=== PATIENT | female | born 1935 | race Caucasian/White ===

== ENCOUNTER 2017-01-17 13:10 | Inpatient (IN) | payer OTHER ==
[2017-01-17] MEDS ORDERED: ENOXAPARIN SODIUM 30 MG/0.3 ML DISP.SYRIN SQ SCH (15:00)
[2017-01-17] MEDS: ACETAMINOPHEN 500 MG TABLET PO PRN ×2 (15:07→22:52)
[2017-01-17] MEDS ORDERED: ENOXAPARIN SODIUM 30 MG/0.3 ML DISP.SYRIN SQ ONE (15:08)
[2017-01-17 15:26] VITALS: BMI 49.5
[2017-01-17] MEDS: PANTOPRAZOLE SODIUM 40 MG TABLET PO SCH (17:40)
--- NOTE | 2017-01-17 18:23 | History and Physical Report ---
History of Present Illnes - History of Present Illness Reason for Visit: gait disturbance History of Present Illness: Patient is an 81 yo white female who fell and sustained a right intertrochanteric fracture with ORIF of the right hip. Postoperative course has been complicated by aspiration. She subsequently had a G tube placed. Patient has had a follow-up swallow study done which showed some improvement with her swallowing. Patient does have some dementia issues. Has been getting confused some but has not had any behavioral problems. Patient has bee admitted to this institution for further rehab services. The goal is for her to return home to live with her and daughter. - Past Medical History Cardiac: CAD, HTN, Hyperlipidemia, Valve insufficiency (mitral), Other (PVD) KILN CHARGER: CVA, Dementia Gastrointestinal: Constipation, Diverticulosis, GERD, GI bleed - Past Surgical History Past Surgical History: Other (CABG, s/p mitral valve replacement, endarterectomy , s/p left and right intertrochontric fracture) - Past Family History Mother Family History: Father Family History: - Past Social History Smoke: Quit Alcohol: None Drugs: None Lives: With Family Domestic Violence: Negative - Health Maintenance Health Maintenance: Influenza Vaccine, Pneumococcal Vaccine Influenza Vaccine: Current for this Influenza Season Pneumonia Vaccine: Yes Resuscitation Status: Resusciation Status Resuscitation Status Do Not Resuscitate - Unable to Obtain History Unable to Obtain: Yes Review of Systems - Review of Systems Constitutional: negative: Fever, Chills, Weakness Eyes: negative: pain, vision change, eyelid inflammation ENT: negative: Ear Pain, Ear Discharge, Nose Pain, Nose Discharge, Nose Congestion Respiratory: negative: Cough, Dry, Shortness of Breath, Hemoptysis, SOB with Excertion, Pleuritic Pain, Wheezing Cardiovascular: negative: Chest Pain, Palpitations, Orthopnea, Paroxysmal Noc. Dyspnea, Edema Gastrointestinal: negative: Nausea, Vomiting, Abdominal Pain, Diarrhea, Constipation Genitourinary: negative: Dysuria, Incontinence Musculoskeletal: Leg Pain (left hip). negative: Neck Pain, Shoulder Pain Skin: negative: Rash, Lesions Neurological: Confusion. negative: Weakness, Numbness, Incoordination - Medications/Allergies Allergies/Adverse Reactions: Allergies Allergy/AdvReac Type Severity Reaction Status Date / Time codeine AdvReac Nausea/Vomi Verified 01/17/17 13:45 ting Home Medications: Home Medications Aspirin [Ralph] 81 mg PO DAILY 01/17/17 Atorvastatin Calcium 40 mg PO HS 01/17/17 Donepezil HCl 10 mg PO HS 01/17/17 Furosemide [Lasix] 20 mg PO DAILY 01/17/17 Losartan Potassium [Cozaar] 75 mg PO DAILY 01/17/17 Metoprolol Tartrate [Lopressor] 25 mg PO DAILY 01/17/17 Multivitamin [Tab-A-Katherin] 1 each PO DAILY 01/17/17 Pantoprazole Sodium [Protonix] 20 mg PO 717 01/17/17 Potassium Chloride [Klor-Con M20] 20 meq PO DAILY 01/17/17 Current Inpatient Medications: Current Inpatient Medications Acetaminophen (Tylenol Extra Strength) 500 mg PO TID PRN PRN Reason: Fever >101 Last Admin: 01/17/17 15:07 Dose: 500 mg Aspirin (Aspirin) 81 mg PO DAILY [facility] Atorvastatin Calcium (Lipitor) 40 mg PO HS [facility] Donepezil HCl (Aricept) 10 mg PO HS [facility] Enoxaparin Sodium (Lovenox) 30 mg SQ QD [facility] Stop: 01/30/17 15:01 Last Admin: 01/17/17 15:16 Dose: Not Given Furosemide (Lasix) 20 mg PO DAILY [facility] Losartan Potassium (Cozaar) 75 mg PO DAILY [facility] Metoprolol Tartrate (Lopressor) 25 mg PO DAILY [facility] Multivitamins (Tab-A-Katherin) 1 each PO DAILY [facility] Pantoprazole Sodium (Protonix) 20 mg PO 717 [facility] Last Admin: 01/17/17 17:40 Dose: 20 mg Potassium Chloride (Klor-Con M20) 20 meq PO DAILY [facility] Exam - Exam Vital Signs: Vital Signs (72 hours) 01/17/17 13:45 Temperature 99.3 F Pulse Rate [ 81 Right Radial] Respiratory 16 Rate Blood Pressure 143/70 [Right Arm] O2 Sat by Pulse 98 Oximetry General: Alert, Oriented to Person, Cooperative, No acute distress. No: Oriented to Place, Oriented to Time HEENT: PERRLA, EOMI, Mouth Mucous membr. moist/[place], Dentition Normal, Hearing Grossly Normal Neck: Normal Range of Motion. No: Stridor, Rigidity, Lymphadenopathy Carotids: WNL Thyroid: WNL Lungs: Clear to auscultation, Normal air movement, Speaks full Sentences. No: Respiratory Distress, Wheezes, Rales, Rhonchi Cardiovascular: Regular rate, Normal S1, Normal S2, No murmurs. No: Gallops, Rubs Abdomen: Normal bowel sounds, Soft, No tenderness, No hepatospenomegaly, No masses, Other (g tube in mid abd area. incision site is clean and dry) Integumentary: Normal, [place], Warm, Dry Extremities: No clubbing, No cyanosis, No edema, Normal pulses, Other (incision to the right hip is clean and dry, mild ecchymosis noted. ) Neurological: Normal speech, Strength Equal Bilat, Normal tone, Sensation intact , Cranial nerves 3-12 NL, Reflexes 2+ Psych/Mental Status: Mental status NL, Mood NL. No: Intact Judgment Assessment/Plan - Assessment/Plan (1) Gait disturbance Status: Acute Current Visit: Yes Assessment: patient will be started on PT and OT. goal is to get patient back home (2) Intertrochanteric fracture of femur Status: Acute Current Visit: Yes Qualifiers: Fracture type: closed Fracture alignment: displaced Laterality: right Fracture healing: with routine healing Assessment: stable at this time. (3) Aspiration pneumonia Status: Acute Current Visit: Yes Qualifiers: Aspiration pneumonia type: due to gastric secretions Laterality: bilateral Lung location: unspecified part of lung Qualified Code(s): J69.0 - Pneumonitis due to inhalation of food and vomit Assessment: Patient has finished antibiotics, will order HFN PRN. Patient is still on oxygen therapy, not sure if she is on oxygen at home. (4) Dementia Status: Chronic Current Visit: Yes Qualifiers: Dementia type: Alzheimer's disease Assessment: Patient is confused at this time. Anticipate patient will get more confused with move here. Will start ativan PRN and ambien PRN. VTE Assessment - RISK FACTOR SCORE VTE RISK FACTOR SCORES: AGE OVER 60 YEARS, ANTICIPATED BED CONFINEMENT OR IMMOBILIZATION > 24 HOURS - RISK VTE MODERATE RISK: SCORE OF 2 (RISK PROXIMAL DVT 2-4%) PROPHYAXIS NEEDED
[2017-01-17] MEDS: DONEPEZIL HCL 5 MG TABLET PO SCH (19:56)
[2017-01-17] MEDS: ATORVASTATIN CALCIUM 80 MG TABLET PO SCH (19:56)
[2017-01-17] MEDS ORDERED: LORazepam 0.5 MG TABLET PO PRN (19:58)
[2017-01-17] MEDS ORDERED: ZOLPIDEM TARTRATE 5 MG TABLET PO PRN (19:59)
[2017-01-17] MEDS ORDERED: IPRATROPIUM/ALBUTEROL SULFATE 3 ML AMPUL.NEB NEB PRN (20:30)
[2017-01-17] MEDS: diphenhydrAMINE HCL 25 MG TABLET PO PRN (22:52)
[2017-01-18] MEDS ORDERED: ENOXAPARIN SODIUM 30 MG/0.3 ML DISP.SYRIN SQ ONE (04:37)
[2017-01-18] MEDS: PANTOPRAZOLE SODIUM 40 MG TABLET PO SCH (06:07)
[2017-01-18] MEDS: LOSARTAN POTASSIUM 50 MG TABLET PO SCH (09:05)
[2017-01-18] MEDS: ACETAMINOPHEN 500 MG TABLET PO PRN (09:06)
[2017-01-18] MEDS: FUROSEMIDE 20 MG TABLET PO SCH (09:06)
[2017-01-18] MEDS: MULTIVITAMIN 1 EACH TABLET PO SCH (09:06)
[2017-01-18] MEDS: ASPIRIN 81 MG CHEW TAB PO SCH (09:06)
[2017-01-18] MEDS: POTASSIUM CHLORIDE 20 MEQ TABLET.ER PO SCH (09:06)
[2017-01-18] MEDS: METOPROLOL TARTRATE 50 MG TABLET PO SCH (09:06)
[2017-01-18] MEDS: ENOXAPARIN SODIUM 30 MG/0.3 ML DISP.SYRIN SQ SCH (09:07)
[2017-01-18] MEDS: DONEPEZIL HCL 5 MG TABLET PO SCH (21:00)
[2017-01-18] MEDS: ATORVASTATIN CALCIUM 80 MG TABLET PO SCH (21:00)
[2017-01-19] MEDS: METOPROLOL TARTRATE 50 MG TABLET PO SCH (08:03)
[2017-01-19] MEDS: MULTIVITAMIN 1 EACH TABLET PO SCH (08:04)
[2017-01-19] MEDS: ASPIRIN 81 MG CHEW TAB PO SCH (08:04)
[2017-01-19] MEDS: ENOXAPARIN SODIUM 30 MG/0.3 ML DISP.SYRIN SQ SCH (08:04)
[2017-01-19] MEDS: POTASSIUM CHLORIDE 20 MEQ TABLET.ER PO SCH (08:04)
[2017-01-19] MEDS: LOSARTAN POTASSIUM 50 MG TABLET PO SCH (08:04)
[2017-01-19] MEDS: ACETAMINOPHEN 500 MG TABLET PO PRN ×2 (08:04→13:10)
[2017-01-19] MEDS: FUROSEMIDE 20 MG TABLET PO SCH (08:16)
[2017-01-19] MEDS: DONEPEZIL HCL 5 MG TABLET PO SCH (19:56)
[2017-01-19] MEDS: ATORVASTATIN CALCIUM 80 MG TABLET PO SCH (19:57)
[2017-01-20] MEDS: ACETAMINOPHEN 500 MG TABLET PO PRN ×4 (00:51→20:13)
[2017-01-20] MEDS: MULTIVITAMIN 1 EACH TABLET PO SCH (09:36)
[2017-01-20] MEDS: ENOXAPARIN SODIUM 30 MG/0.3 ML DISP.SYRIN SQ SCH (09:36)
[2017-01-20] MEDS: FUROSEMIDE 20 MG TABLET PO SCH (09:36)
[2017-01-20] MEDS: METOPROLOL TARTRATE 50 MG TABLET PO SCH (09:36)
[2017-01-20] MEDS: LOSARTAN POTASSIUM 50 MG TABLET PO SCH (09:37)
[2017-01-20] MEDS: ASPIRIN 81 MG CHEW TAB PO SCH (09:37)
[2017-01-20] MEDS: POTASSIUM CHLORIDE 20 MEQ TABLET.ER PO SCH (09:38)
[2017-01-20] MEDS: DONEPEZIL HCL 5 MG TABLET PO SCH (20:13)
[2017-01-20] MEDS: ATORVASTATIN CALCIUM 80 MG TABLET PO SCH (20:13)
[2017-01-21] MEDS: ACETAMINOPHEN 500 MG TABLET PO PRN ×3 (04:12→21:12)
[2017-01-21 07:02] LABS: BASOPHILS % 0.6 (0.0-1.5); MEAN CORPUSCULAR HEMOGLOBIN 29.2 pg (28.0-34.0); MONOCYTES % 3.8 % (0.0-11.0)
[2017-01-21 07:12] LABS: eGFR (African) > 60; eGFR (Non-African) > 60
--- NOTE | 2017-01-21 08:22 | Inpatient Progress Note ---
Subjective - Required Recertification Statement I anticipate X number of days because-include discharge plan: 2 weeks - Review of Systems Events since last encounter: Patient remains confused, no behavioral problems noted. Seems to be participating with PT and OT well. Pulmonary: Denies: Dyspnea, Cough Gastrointestinal: Denies: Nausea, Vomiting, Abdominal Pain, Diarrhea, Constipation Objective - Exam Vitals and I&O: Vital Signs Temp 99.2 F 01/20/17 21:00 Pulse 72 01/20/17 21:00 Resp 20 01/20/17 21:00 BP 165/79 01/20/17 21:00 Pulse Ox 93 01/20/17 21:00 Intake & Output 01/20/17 01/20/17 01/21/17 11:59 23:59 11:59 Intake Total 220 Balance 220 Intake: Oral 220 Other: Voiding Method Bedside Commode Bedside Commode General: Alert, Oriented to Person, Cooperative. No: Oriented to Place, Oriented to Time Neck: Supple Lungs: Clear to auscultation, Normal air movement, Speaks full Sentences. No: Respiratory Distress, Wheezes, Rales, Rhonchi Cardiovascular: Regular rate, Normal S1, Normal S2, No murmurs Abdomen: Normal bowel sounds, Soft, No tenderness Skin: Normal, [place], Warm, Dry Neurological: Normal speech, Strength Equal Bilat Psych/Mental Status: No: Mental status NL (confused), Intact Judgment - Results Results: Laboratory Results WBC 9.80 K/ul (4.00-12.00) 01/21/17 06:20 RBC 3.28 M/ul (3.90-5.20) L 01/21/17 06:20 Hgb 9.6 g/dL (12.0-16.0) L 01/21/17 06:20 Hct 31.8 % (34.5-46.5) L 01/21/17 06:20 MCV 97.0 fl (80.0-100.0) 01/21/17 06:20 MCH 29.2 pg (28.0-34.0) 01/21/17 06:20 MCHC 30.1 g/dL (30.0-36.0) 01/21/17 06:20 RDW 15.2 % (11.3-14.3) H 01/21/17 06:20 Plt Count 795 K/mm3 (130-400) H 01/21/17 06:20 Neut % (Auto) 82.4 % (39.0-79.0) H 01/21/17 06:20 Lymph % (Auto) 10.8 % (16.0-50.0) L 01/21/17 06:20 [place] % (Auto) 3.8 % (0.0-11.0) 01/21/17 06:20 Eos % (Auto) 1.0 % (0.0-6.8) 01/21/17 06:20 Baso % (Auto) 0.6 (0.0-1.5) 01/21/17 06:20 Neut # 8.0 # k/uL (1.4-7.7) H 01/21/17 06:20 Lymph # 1.1 # k/uL (0.6-4.0) 01/21/17 06:20 [place] # 0.4 # k/uL (0.0-0.9) 01/21/17 06:20 Eos # 0.1 # k/uL (0.0-0.6) 01/21/17 06:20 Baso # 0.1 # k/uL (0.0-0.5) 01/21/17 06:20 Reactive Lymphs % 1.4 % (0.0-5.0) 01/21/17 06:20 Reactive Lymphs # 0.1 # k/uL (0.0-0.8) 01/21/17 06:20 Sodium 139 mmol/L (136-145) 01/21/17 06:20 Potassium 4.1 mmol/L (3.5-5.0) 01/21/17 06:20 Chloride 103 mmol/L (98-110) 01/21/17 06:20 Carbon Dioxide 35 mmol/L (20-32) H 01/21/17 06:20 BUN 30 mg/dL (10-26) H 01/21/17 06:20 Creatinine 0.5 mg/dL (0.4-1.5) 01/21/17 06:20 Estimated Creat Clear 82 01/21/17 06:20 Est GFR ( Amer) > 60 (60-) 01/21/17 06:20 Est GFR (Non-Af Amer) > 60 (60-) 01/21/17 06:20 Glucose 108 mg/dL (70-99) H 01/21/17 06:20 Calcium 9.7 mg/dL (8.5-10.5) 01/21/17 06:20 Total Bilirubin 0.7 mg/dL (0.2-1.2) 01/21/17 06:20 AST 19 U/L (0-41) 01/21/17 06:20 ALT 13 U/L (0-45) 01/21/17 06:20 Alkaline Phosphatase 166 U/L (46-116) H 01/21/17 06:20 Total Protein 6.5 g/dL (6.0-8.5) 01/21/17 06:20 Albumin 3.9 g/dL (3.0-5.5) 01/21/17 06:20 Assessment/Plan - Assessment/Plan (1) Gait disturbance Status: Acute Current Visit: Yes Assessment: continue with OT and PT (2) Aspiration pneumonia Status: Acute Current Visit: Yes Qualifiers: Aspiration pneumonia type: due to gastric secretions Laterality: bilateral Lung location: unspecified part of lung Qualified Code(s): J69.0 - Pneumonitis due to inhalation of food and vomit Assessment: appears to be stable (3) Dementia Status: Chronic Current Visit: Yes Qualifiers: Dementia type: Alzheimer's disease Assessment: stable
[2017-01-21] MEDS: LOSARTAN POTASSIUM 50 MG TABLET PO SCH (09:16)
[2017-01-21] MEDS: ASPIRIN 81 MG CHEW TAB PO SCH (09:17)
[2017-01-21] MEDS: METOPROLOL TARTRATE 50 MG TABLET PO SCH (09:17)
[2017-01-21] MEDS: POTASSIUM CHLORIDE 20 MEQ TABLET.ER PO SCH (09:17)
[2017-01-21] MEDS: MULTIVITAMIN 1 EACH TABLET PO SCH (09:17)
[2017-01-21] MEDS: ENOXAPARIN SODIUM 30 MG/0.3 ML DISP.SYRIN SQ SCH (09:18)
[2017-01-21] MEDS: FUROSEMIDE 20 MG TABLET PO SCH (09:19)
[2017-01-21] MEDS: ATORVASTATIN CALCIUM 80 MG TABLET PO SCH (21:13)
[2017-01-21] MEDS: DONEPEZIL HCL 5 MG TABLET PO SCH (21:13)
[2017-01-22] MEDS: ACETAMINOPHEN 500 MG TABLET PO PRN ×3 (05:11→17:02)
[2017-01-22] MEDS: LOSARTAN POTASSIUM 50 MG TABLET PO SCH (08:18)
[2017-01-22] MEDS: ASPIRIN 81 MG CHEW TAB PO SCH (08:18)
[2017-01-22] MEDS: MULTIVITAMIN 1 EACH TABLET PO SCH (08:19)
[2017-01-22] MEDS: FUROSEMIDE 20 MG TABLET PO SCH (08:19)
[2017-01-22] MEDS: POTASSIUM CHLORIDE 20 MEQ TABLET.ER PO SCH (08:19)
[2017-01-22] MEDS: METOPROLOL TARTRATE 50 MG TABLET PO SCH (08:20)
[2017-01-22] MEDS: ENOXAPARIN SODIUM 30 MG/0.3 ML DISP.SYRIN SQ SCH (08:21)
[2017-01-22] MEDS: DONEPEZIL HCL 5 MG TABLET PO SCH (19:44)
[2017-01-22] MEDS: ATORVASTATIN CALCIUM 80 MG TABLET PO SCH (19:44)
[2017-01-23] MEDS: ACETAMINOPHEN 500 MG TABLET PO PRN ×3 (01:54→20:22)
[2017-01-23] MEDS: LOSARTAN POTASSIUM 50 MG TABLET PO SCH (08:17)
[2017-01-23] MEDS: METOPROLOL TARTRATE 50 MG TABLET PO SCH (08:18)
[2017-01-23] MEDS: POTASSIUM CHLORIDE 20 MEQ TABLET.ER PO SCH (08:18)
[2017-01-23] MEDS: FUROSEMIDE 20 MG TABLET PO SCH (08:18)
[2017-01-23] MEDS: ENOXAPARIN SODIUM 30 MG/0.3 ML DISP.SYRIN SQ SCH (08:18)
[2017-01-23] MEDS: ASPIRIN 81 MG CHEW TAB PO SCH (08:18)
[2017-01-23] MEDS: MULTIVITAMIN 1 EACH TABLET PO SCH (08:18)
[2017-01-23] MEDS: ATORVASTATIN CALCIUM 80 MG TABLET PO SCH (20:21)
[2017-01-23] MEDS: DONEPEZIL HCL 5 MG TABLET PO SCH (20:22)
[2017-01-24] MEDS: MULTIVITAMIN 1 EACH TABLET PO SCH (09:12)
[2017-01-24] MEDS: POTASSIUM CHLORIDE 20 MEQ TABLET.ER PO SCH (09:12)
[2017-01-24] MEDS: LOSARTAN POTASSIUM 50 MG TABLET PO SCH (09:12)
[2017-01-24] MEDS: FUROSEMIDE 20 MG TABLET PO SCH (09:12)
[2017-01-24] MEDS: ASPIRIN 81 MG CHEW TAB PO SCH (09:12)
[2017-01-24] MEDS: METOPROLOL TARTRATE 50 MG TABLET PO SCH (09:13)
[2017-01-24] MEDS: ENOXAPARIN SODIUM 30 MG/0.3 ML DISP.SYRIN SQ SCH (09:15)
--- NOTE | 2017-01-24 18:51 | Diagnostic Imaging Report ---
MARISA GARCES [facility] [address] [facility].[address] [address] Report Submission Date: Jan 24, 2017 6:40:59 PM [employer] Patient Study Name: SUSU MUNIZ Date: Jan 24, 2017 6:13:01 PM [employer] Modality Type: CR Gender: F Description: CHEST : 31 Institution: [facility] Physician: MARISA GARCES Chest 2 views History: Productive cough Findings: Mitral valve replacement, moderate hyperinflation, thoracic kyphosis, atherosclerosis, healed right rib fractures, and mild basal left lower lobe infiltrate or atelectasis are observed. A small left pleural effusion is present. The right lung is clear. The cardiac silhouette is mildly enlarged. Impression: 1. Mild basal left lower lobe infiltrate or atelectasis and small left pleural effusion. 2. Chronic obstructive pulmonary disease, mitral valve replacement, and healed right rib fractures. Electronically signed on Jan 24, 2017 6:40:59 PM [employer] by: Andrea MARROQUIN
[2017-01-24] MEDS: ACETAMINOPHEN 325 MG TABLET PO SCH ×2 (19:07→19:08)
[2017-01-24] MEDS: ATORVASTATIN CALCIUM 80 MG TABLET PO SCH (21:12)
[2017-01-24] MEDS: DONEPEZIL HCL 5 MG TABLET PO SCH (21:12)
[2017-01-25] MEDS: ACETAMINOPHEN 325 MG TABLET PO SCH ×3 (06:11→18:42)
[2017-01-25 06:29] LABS: BASOPHILS % 0.7 (0.0-1.5); MEAN CORPUSCULAR HEMOGLOBIN 29.9 pg (28.0-34.0); MEAN CORPUSCULAR VOLUME 97.7 fl (80.0-100.0); NEUTROPHILS # 5.6 # k/uL (1.4-7.7)
[2017-01-25 06:53] LABS: eGFR (African) > 60; eGFR (Non-African) > 60
[2017-01-25] MEDS: METOPROLOL TARTRATE 50 MG TABLET PO SCH (08:14)
[2017-01-25] MEDS: DONEPEZIL HCL 5 MG TABLET PO SCH (08:15)
[2017-01-25] MEDS: FUROSEMIDE 20 MG TABLET PO SCH (08:16)
[2017-01-25] MEDS: POTASSIUM CHLORIDE 20 MEQ TABLET.ER PO SCH (08:16)
[2017-01-25] MEDS: MULTIVITAMIN 1 EACH TABLET PO SCH (08:16)
[2017-01-25] MEDS: ASPIRIN 81 MG CHEW TAB PO SCH (08:17)
[2017-01-25] MEDS: LOSARTAN POTASSIUM 50 MG TABLET PO SCH (08:17)
[2017-01-25] MEDS: ATORVASTATIN CALCIUM 80 MG TABLET PO SCH (20:21)
[2017-01-26] MEDS: diphenhydrAMINE HCL 25 MG TABLET PO PRN (00:38)
[2017-01-26] MEDS: ACETAMINOPHEN 325 MG TABLET PO SCH ×4 (00:38→18:25)
[2017-01-26] MEDS: ASPIRIN 81 MG CHEW TAB PO SCH (07:56)
[2017-01-26] MEDS: LOSARTAN POTASSIUM 50 MG TABLET PO SCH (07:57)
[2017-01-26] MEDS: FUROSEMIDE 20 MG TABLET PO SCH (07:58)
[2017-01-26] MEDS: POTASSIUM CHLORIDE 20 MEQ TABLET.ER PO SCH (07:58)
[2017-01-26] MEDS: METOPROLOL TARTRATE 50 MG TABLET PO SCH (07:59)
[2017-01-26] MEDS: MULTIVITAMIN 1 EACH TABLET PO SCH (07:59)
[2017-01-26] MEDS: ATORVASTATIN CALCIUM 80 MG TABLET PO SCH (19:55)
[2017-01-26] MEDS: DONEPEZIL HCL 5 MG TABLET PO SCH (19:55)
[2017-01-27] MEDS: ACETAMINOPHEN 325 MG TABLET PO SCH ×4 (01:16→18:37)
[2017-01-27] MEDS: ASPIRIN 81 MG CHEW TAB PO SCH (08:00)
[2017-01-27] MEDS: LOSARTAN POTASSIUM 50 MG TABLET PO SCH (08:00)
[2017-01-27] MEDS: FUROSEMIDE 20 MG TABLET PO SCH (08:03)
[2017-01-27] MEDS: POTASSIUM CHLORIDE 20 MEQ TABLET.ER PO SCH (08:03)
[2017-01-27] MEDS: METOPROLOL TARTRATE 50 MG TABLET PO SCH (08:05)
[2017-01-27] MEDS: MULTIVITAMIN 1 EACH TABLET PO SCH (08:05)
[2017-01-27] MEDS: DONEPEZIL HCL 5 MG TABLET PO SCH (19:35)
[2017-01-27] MEDS: ATORVASTATIN CALCIUM 80 MG TABLET PO SCH (19:35)
[2017-01-27] MEDS: diphenhydrAMINE HCL 25 MG TABLET PO PRN (22:30)
[2017-01-28] MEDS: ACETAMINOPHEN 325 MG TABLET PO SCH ×4 (00:36→18:40)
[2017-01-28] MEDS: POTASSIUM CHLORIDE 20 MEQ TABLET.ER PO SCH (09:00)
[2017-01-28] MEDS: FUROSEMIDE 20 MG TABLET PO SCH (09:00)
[2017-01-28] MEDS: ASPIRIN 81 MG CHEW TAB PO SCH (09:00)
[2017-01-28] MEDS: LOSARTAN POTASSIUM 50 MG TABLET PO SCH (09:00)
[2017-01-28] MEDS: METOPROLOL TARTRATE 50 MG TABLET PO SCH (09:00)
[2017-01-28] MEDS: MULTIVITAMIN 1 EACH TABLET PO SCH (09:00)
[2017-01-28] MEDS: DONEPEZIL HCL 5 MG TABLET PO SCH (20:06)
[2017-01-28] MEDS: ATORVASTATIN CALCIUM 80 MG TABLET PO SCH (20:09)
[2017-01-29] MEDS: ACETAMINOPHEN 325 MG TABLET PO SCH ×5 (02:00→18:14)
[2017-01-29] MEDS: MULTIVITAMIN 1 EACH TABLET PO SCH (08:30)
[2017-01-29] MEDS: METOPROLOL TARTRATE 50 MG TABLET PO SCH (08:30)
[2017-01-29] MEDS: FUROSEMIDE 20 MG TABLET PO SCH (08:31)
[2017-01-29] MEDS: POTASSIUM CHLORIDE 20 MEQ TABLET.ER PO SCH (08:31)
[2017-01-29] MEDS: LOSARTAN POTASSIUM 50 MG TABLET PO SCH (08:31)
[2017-01-29] MEDS: ASPIRIN 81 MG CHEW TAB PO SCH (08:39)
[2017-01-29] MEDS ORDERED: CALCIUM CARB 500 MG TAB.CHEW PO PRN (16:36)
[2017-01-29] MEDS ORDERED: MAGNESIUM HYDROXIDE 400 MG/5 ML 30ML UDC PO PRN (17:04)
[2017-01-29] MEDS: ATORVASTATIN CALCIUM 80 MG TABLET PO SCH (19:24)
[2017-01-29] MEDS: DONEPEZIL HCL 5 MG TABLET PO SCH (19:24)
[2017-01-30] MEDS: diphenhydrAMINE HCL 25 MG TABLET PO PRN (01:54)
[2017-01-30] MEDS: ACETAMINOPHEN 325 MG TABLET PO SCH ×4 (01:54→18:54)
[2017-01-30] MEDS: PANTOPRAZOLE SODIUM 40 MG TABLET PO SCH (06:23)
[2017-01-30] MEDS ORDERED: PANTOPRAZOLE SODIUM 40 MG TABLET PO SCH (07:00)
[2017-01-30] MEDS: FUROSEMIDE 20 MG TABLET PO SCH (09:02)
[2017-01-30] MEDS: ASPIRIN 81 MG CHEW TAB PO SCH (09:02)
[2017-01-30] MEDS: POTASSIUM CHLORIDE 20 MEQ TABLET.ER PO SCH (09:02)
[2017-01-30] MEDS: MULTIVITAMIN 1 EACH TABLET PO SCH (09:03)
[2017-01-30] MEDS: METOPROLOL TARTRATE 50 MG TABLET PO SCH (09:03)
[2017-01-30] MEDS: LOSARTAN POTASSIUM 50 MG TABLET PO SCH (09:05)
[2017-01-30] MEDS: ATORVASTATIN CALCIUM 80 MG TABLET PO SCH (19:28)
[2017-01-30] MEDS: DONEPEZIL HCL 5 MG TABLET PO SCH (19:28)
[2017-01-31] MEDS: ACETAMINOPHEN 325 MG TABLET PO SCH ×4 (00:36→18:13)
[2017-01-31] MEDS: PANTOPRAZOLE SODIUM 40 MG TABLET PO SCH (05:48)
[2017-01-31] MEDS: LOSARTAN POTASSIUM 50 MG TABLET PO SCH (08:23)
[2017-01-31] MEDS: POTASSIUM CHLORIDE 20 MEQ TABLET.ER PO SCH (08:24)
[2017-01-31] MEDS: ASPIRIN 81 MG CHEW TAB PO SCH (08:24)
[2017-01-31] MEDS: METOPROLOL TARTRATE 50 MG TABLET PO SCH (08:24)
[2017-01-31] MEDS: MULTIVITAMIN 1 EACH TABLET PO SCH (08:24)
[2017-01-31] MEDS: FUROSEMIDE 20 MG TABLET PO SCH (08:24)
[2017-01-31] MEDS: DONEPEZIL HCL 5 MG TABLET PO SCH (19:20)
[2017-01-31] MEDS: ATORVASTATIN CALCIUM 80 MG TABLET PO SCH (19:22)
[2017-02-01] MEDS: ACETAMINOPHEN 325 MG TABLET PO SCH ×4 (01:10→18:45)
[2017-02-01] MEDS: PANTOPRAZOLE SODIUM 40 MG TABLET PO SCH (06:03)
[2017-02-01] MEDS: LOSARTAN POTASSIUM 50 MG TABLET PO SCH (08:52)
[2017-02-01] MEDS: ASPIRIN 81 MG CHEW TAB PO SCH (08:52)
[2017-02-01] MEDS: FUROSEMIDE 20 MG TABLET PO SCH (08:53)
[2017-02-01] MEDS: MULTIVITAMIN 1 EACH TABLET PO SCH (08:53)
[2017-02-01] MEDS: METOPROLOL TARTRATE 50 MG TABLET PO SCH (08:53)
[2017-02-01] MEDS: POTASSIUM CHLORIDE 20 MEQ TABLET.ER PO SCH (08:53)
[2017-02-01] MEDS: ATORVASTATIN CALCIUM 80 MG TABLET PO SCH (20:16)
[2017-02-01] MEDS: DONEPEZIL HCL 5 MG TABLET PO SCH (20:16)
[2017-02-02] MEDS: ACETAMINOPHEN 325 MG TABLET PO SCH ×4 (00:58→18:23)
[2017-02-02] MEDS: PANTOPRAZOLE SODIUM 40 MG TABLET PO SCH (05:32)
[2017-02-02] MEDS: LOSARTAN POTASSIUM 50 MG TABLET PO SCH (09:11)
[2017-02-02] MEDS: ASPIRIN 81 MG CHEW TAB PO SCH (09:11)
[2017-02-02] MEDS: MULTIVITAMIN 1 EACH TABLET PO SCH (09:12)
[2017-02-02] MEDS: FUROSEMIDE 20 MG TABLET PO SCH (09:12)
[2017-02-02] MEDS: POTASSIUM CHLORIDE 20 MEQ TABLET.ER PO SCH (09:12)
[2017-02-02] MEDS: METOPROLOL TARTRATE 50 MG TABLET PO SCH (09:13)
[2017-02-02] MEDS: DONEPEZIL HCL 5 MG TABLET PO SCH (20:10)
[2017-02-02] MEDS: ATORVASTATIN CALCIUM 80 MG TABLET PO SCH (20:10)
[2017-02-03] MEDS: ACETAMINOPHEN 325 MG TABLET PO SCH ×4 (01:02→18:25)
[2017-02-03] MEDS: PANTOPRAZOLE SODIUM 40 MG TABLET PO SCH (06:30)
[2017-02-03] MEDS: ASPIRIN 81 MG CHEW TAB PO SCH (09:08)
[2017-02-03] MEDS: LOSARTAN POTASSIUM 50 MG TABLET PO SCH (09:08)
[2017-02-03] MEDS: FUROSEMIDE 20 MG TABLET PO SCH (09:09)
[2017-02-03] MEDS: POTASSIUM CHLORIDE 20 MEQ TABLET.ER PO SCH (09:09)
[2017-02-03] MEDS: METOPROLOL TARTRATE 50 MG TABLET PO SCH (09:09)
[2017-02-03] MEDS: MULTIVITAMIN 1 EACH TABLET PO SCH (09:10)
[2017-02-03] MEDS: ATORVASTATIN CALCIUM 80 MG TABLET PO SCH (20:19)
[2017-02-03] MEDS: DONEPEZIL HCL 5 MG TABLET PO SCH (20:20)
[2017-02-04] MEDS: ACETAMINOPHEN 325 MG TABLET PO SCH ×4 (01:14→17:58)
[2017-02-04] MEDS: PANTOPRAZOLE SODIUM 40 MG TABLET PO SCH (05:57)
[2017-02-04] MEDS: FUROSEMIDE 20 MG TABLET PO SCH (08:40)
[2017-02-04] MEDS: LOSARTAN POTASSIUM 50 MG TABLET PO SCH (08:40)
[2017-02-04] MEDS: METOPROLOL TARTRATE 50 MG TABLET PO SCH (08:41)
[2017-02-04] MEDS: MULTIVITAMIN 1 EACH TABLET PO SCH (08:41)
[2017-02-04] MEDS: ASPIRIN 81 MG CHEW TAB PO SCH (08:41)
[2017-02-04] MEDS: POTASSIUM CHLORIDE 20 MEQ TABLET.ER PO SCH (08:42)
[2017-02-04] MEDS: ATORVASTATIN CALCIUM 80 MG TABLET PO SCH (20:09)
[2017-02-04] MEDS: DONEPEZIL HCL 5 MG TABLET PO SCH (20:09)
[2017-02-05] MEDS: ACETAMINOPHEN 325 MG TABLET PO SCH ×4 (01:00→18:25)
[2017-02-05] MEDS: PANTOPRAZOLE SODIUM 40 MG TABLET PO SCH (05:57)
[2017-02-05] MEDS: ASPIRIN 81 MG CHEW TAB PO SCH (08:53)
[2017-02-05] MEDS: LOSARTAN POTASSIUM 50 MG TABLET PO SCH (08:53)
[2017-02-05] MEDS: POTASSIUM CHLORIDE 20 MEQ TABLET.ER PO SCH (08:54)
[2017-02-05] MEDS: FUROSEMIDE 20 MG TABLET PO SCH (08:54)
[2017-02-05] MEDS: METOPROLOL TARTRATE 50 MG TABLET PO SCH (08:54)
[2017-02-05] MEDS: MULTIVITAMIN 1 EACH TABLET PO SCH (08:55)
[2017-02-05] MEDS: ATORVASTATIN CALCIUM 80 MG TABLET PO SCH (19:31)
[2017-02-05] MEDS: DONEPEZIL HCL 5 MG TABLET PO SCH (19:31)
[2017-02-06] MEDS: ACETAMINOPHEN 325 MG TABLET PO SCH ×4 (00:30→19:38)
[2017-02-06] MEDS: PANTOPRAZOLE SODIUM 40 MG TABLET PO SCH (06:27)
[2017-02-06] MEDS: ASPIRIN 81 MG CHEW TAB PO SCH (08:35)
[2017-02-06] MEDS: POTASSIUM CHLORIDE 20 MEQ TABLET.ER PO SCH (08:36)
[2017-02-06] MEDS: LOSARTAN POTASSIUM 50 MG TABLET PO SCH (08:36)
[2017-02-06] MEDS: FUROSEMIDE 20 MG TABLET PO SCH (08:37)
[2017-02-06] MEDS: METOPROLOL TARTRATE 50 MG TABLET PO SCH (08:37)
[2017-02-06] MEDS: MULTIVITAMIN 1 EACH TABLET PO SCH (08:37)
[2017-02-06] MEDS: DONEPEZIL HCL 5 MG TABLET PO SCH (19:38)
[2017-02-06] MEDS: ATORVASTATIN CALCIUM 80 MG TABLET PO SCH (19:38)
[2017-02-07] MEDS: ACETAMINOPHEN 325 MG TABLET PO SCH ×5 (01:39→18:41)
[2017-02-07] MEDS: PANTOPRAZOLE SODIUM 40 MG TABLET PO SCH (06:13)
[2017-02-07] MEDS: METOPROLOL TARTRATE 50 MG TABLET PO SCH (08:19)
[2017-02-07] MEDS: LOSARTAN POTASSIUM 50 MG TABLET PO SCH (08:20)
[2017-02-07] MEDS: POTASSIUM CHLORIDE 20 MEQ TABLET.ER PO SCH (08:21)
[2017-02-07] MEDS: ASPIRIN 81 MG CHEW TAB PO SCH (08:21)
[2017-02-07] MEDS: FUROSEMIDE 20 MG TABLET PO SCH (08:21)
[2017-02-07] MEDS: MULTIVITAMIN 1 EACH TABLET PO SCH ×2 (08:21→08:22)
[2017-02-07] MEDS: ATORVASTATIN CALCIUM 80 MG TABLET PO SCH (20:00)
[2017-02-07] MEDS: DONEPEZIL HCL 5 MG TABLET PO SCH (20:00)
[2017-02-08] MEDS: ACETAMINOPHEN 325 MG TABLET PO SCH ×3 (06:26→19:29)
[2017-02-08] MEDS: PANTOPRAZOLE SODIUM 40 MG TABLET PO SCH (06:26)
[2017-02-08] MEDS: ASPIRIN 81 MG CHEW TAB PO SCH (08:59)
[2017-02-08] MEDS: POTASSIUM CHLORIDE 20 MEQ TABLET.ER PO SCH (08:59)
[2017-02-08] MEDS: LOSARTAN POTASSIUM 50 MG TABLET PO SCH (08:59)
[2017-02-08] MEDS: METOPROLOL TARTRATE 50 MG TABLET PO SCH (09:00)
[2017-02-08] MEDS: FUROSEMIDE 20 MG TABLET PO SCH (09:00)
[2017-02-08] MEDS: ATORVASTATIN CALCIUM 80 MG TABLET PO SCH (19:29)
[2017-02-08] MEDS: DONEPEZIL HCL 5 MG TABLET PO SCH (19:29)
[2017-02-09] MEDS: ACETAMINOPHEN 325 MG TABLET PO SCH ×4 (01:15→18:48)
[2017-02-09] MEDS: PANTOPRAZOLE SODIUM 40 MG TABLET PO SCH (06:22)
[2017-02-09] MEDS: LOSARTAN POTASSIUM 50 MG TABLET PO SCH (08:14)
[2017-02-09] MEDS: ASPIRIN 81 MG CHEW TAB PO SCH (08:14)
[2017-02-09] MEDS: MULTIVITAMIN 1 EACH TABLET PO SCH (08:17)
[2017-02-09] MEDS: POTASSIUM CHLORIDE 20 MEQ TABLET.ER PO SCH (08:17)
[2017-02-09] MEDS: FUROSEMIDE 20 MG TABLET PO SCH (08:17)
[2017-02-09] MEDS: METOPROLOL TARTRATE 50 MG TABLET PO SCH (08:18)
[2017-02-09] MEDS: DONEPEZIL HCL 5 MG TABLET PO SCH (20:00)
[2017-02-09] MEDS: ATORVASTATIN CALCIUM 80 MG TABLET PO SCH (20:00)
[2017-02-10] MEDS: ACETAMINOPHEN 325 MG TABLET PO SCH ×4 (01:37→18:51)
[2017-02-10] MEDS: PANTOPRAZOLE SODIUM 40 MG TABLET PO SCH (06:21)
[2017-02-10] MEDS: METOPROLOL TARTRATE 50 MG TABLET PO SCH (08:32)
[2017-02-10] MEDS: LOSARTAN POTASSIUM 50 MG TABLET PO SCH (08:33)
[2017-02-10] MEDS: MULTIVITAMIN 1 EACH TABLET PO SCH (08:33)
[2017-02-10] MEDS: ASPIRIN 81 MG CHEW TAB PO SCH (08:33)
[2017-02-10] MEDS: POTASSIUM CHLORIDE 20 MEQ TABLET.ER PO SCH (08:33)
[2017-02-10] MEDS: FUROSEMIDE 20 MG TABLET PO SCH (08:33)
[2017-02-10] MEDS: DONEPEZIL HCL 5 MG TABLET PO SCH (19:37)
[2017-02-10] MEDS: ATORVASTATIN CALCIUM 80 MG TABLET PO SCH (19:38)
[2017-02-11] MEDS: ACETAMINOPHEN 325 MG TABLET PO SCH ×4 (01:17→20:33)
[2017-02-11] MEDS: PANTOPRAZOLE SODIUM 40 MG TABLET PO SCH (05:58)
[2017-02-11] MEDS: ASPIRIN 81 MG CHEW TAB PO SCH (09:12)
[2017-02-11] MEDS: LOSARTAN POTASSIUM 50 MG TABLET PO SCH (09:12)
[2017-02-11] MEDS: FUROSEMIDE 20 MG TABLET PO SCH (09:14)
[2017-02-11] MEDS: POTASSIUM CHLORIDE 20 MEQ TABLET.ER PO SCH (09:14)
[2017-02-11] MEDS: METOPROLOL TARTRATE 50 MG TABLET PO SCH (09:14)
[2017-02-11] MEDS: MULTIVITAMIN 1 EACH TABLET PO SCH (09:15)
[2017-02-11] MEDS: ATORVASTATIN CALCIUM 80 MG TABLET PO SCH (20:33)
[2017-02-11] MEDS: DONEPEZIL HCL 5 MG TABLET PO SCH (20:33)
[2017-02-12] MEDS: ACETAMINOPHEN 325 MG TABLET PO SCH ×3 (01:09→12:15)
[2017-02-12] MEDS: PANTOPRAZOLE SODIUM 40 MG TABLET PO SCH (06:42)
[2017-02-12] MEDS: ASPIRIN 81 MG CHEW TAB PO SCH (10:29)
[2017-02-12] MEDS: POTASSIUM CHLORIDE 20 MEQ TABLET.ER PO SCH (10:30)
[2017-02-12] MEDS: METOPROLOL TARTRATE 50 MG TABLET PO SCH (10:30)
[2017-02-12] MEDS: FUROSEMIDE 20 MG TABLET PO SCH (10:30)
[2017-02-12] MEDS: LOSARTAN POTASSIUM 50 MG TABLET PO SCH (10:30)
[2017-02-12] MEDS: MULTIVITAMIN 1 EACH TABLET PO SCH (10:30)
--- NOTE | 2017-02-12 10:48 | Inpatient Progress Note ---
Subjective - Required Recertification Statement I anticipate X number of days because-include discharge plan: 7 days - Review of Systems Events since last encounter: Patient continued to make improvement with physical and occupational therapy. Patient is transferring better at this time. Patient continued to have some dementia and confusion. Appetite has been stable. Patient hasn't been able to maintain her weight. Her oral intake. Patient has not had any further problems with aspiration that could be noted. General: Denies: Chills Pulmonary: Denies: Dyspnea, Cough, Pleuritic Chest Pain Cardiovascular: Denies: Chest Pain Gastrointestinal: Denies: Nausea, Vomiting, Abdominal Pain Objective - Exam Vitals and I&O: Vital Signs Temp 99 F 02/12/17 07:53 Pulse 84 02/12/17 07:53 Resp 16 02/12/17 07:53 BP 189/87 02/12/17 07:53 Pulse Ox 97 02/12/17 07:53 Intake & Output 02/11/17 02/11/17 02/12/17 11:59 23:59 11:59 Intake Total 120 340 200 Balance 120 340 200 Weight 49.895 kg Intake: Oral 120 340 200 Other: Voiding Method Toilet Toilet General: Alert, Oriented to Person, No acute distress. No: Oriented to Place, Oriented to Time Neck: Supple, No JVD Lungs: Clear to auscultation, Normal air movement, Speaks full Sentences. No: Wheezes, Rales, Rhonchi Cardiovascular: Regular rate, Normal S1, Normal S2, No murmurs. No: Gallops, Rubs Abdomen: Normal bowel sounds (GTN was in place. This was removed without any abnormalities or problems. G-tube was intact upon removal. Dressing was applied to the gastrostomy site.), Soft Extremities: Other (mild ). No: No clubbing, No cyanosis Skin: Normal, [place], Warm Neurological: Normal speech, Strength Equal Bilat, Sensation intact, Cranial nerves 3-12 NL - Results Results: Laboratory Results WBC 7.40 K/ul (4.00-12.00) 01/25/17 06:15 RBC 3.51 M/ul (3.90-5.20) L 01/25/17 06:15 Hgb 10.5 g/dL (12.0-16.0) L 01/25/17 06:15 Hct 34.3 % (34.5-46.5) L 01/25/17 06:15 MCV 97.7 fl (80.0-100.0) 01/25/17 06:15 MCH 29.9 pg (28.0-34.0) 01/25/17 06:15 MCHC 30.6 g/dL (30.0-36.0) 01/25/17 06:15 RDW 15.4 % (11.3-14.3) H 01/25/17 06:15 Plt Count 662 K/mm3 (130-400) H 01/25/17 06:15 Neut % (Auto) 76.1 % (39.0-79.0) 01/25/17 06:15 Lymph % (Auto) 13.8 % (16.0-50.0) L 01/25/17 06:15 [place] % (Auto) 5.0 % (0.0-11.0) 01/25/17 06:15 Eos % (Auto) 2.0 % (0.0-6.8) 01/25/17 06:15 Baso % (Auto) 0.7 (0.0-1.5) 01/25/17 06:15 Neut # 5.6 # k/uL (1.4-7.7) 01/25/17 06:15 Lymph # 1.0 # k/uL (0.6-4.0) 01/25/17 06:15 [place] # 0.4 # k/uL (0.0-0.9) 01/25/17 06:15 Eos # 0.2 # k/uL (0.0-0.6) 01/25/17 06:15 Baso # 0.0 # k/uL (0.0-0.5) 01/25/17 06:15 Reactive Lymphs % 2.4 % (0.0-5.0) 01/25/17 06:15 Reactive Lymphs # 0.2 # k/uL (0.0-0.8) 01/25/17 06:15 Sodium 141 mmol/L (136-145) 01/25/17 06:15 Potassium 3.9 mmol/L (3.5-5.0) 01/25/17 06:15 Chloride 109 mmol/L (98-110) 01/25/17 06:15 Carbon Dioxide 34 mmol/L (20-32) H 01/25/17 06:15 BUN 24 mg/dL (10-26) 01/25/17 06:15 Creatinine 0.5 mg/dL (0.4-1.5) 01/25/17 06:15 Estimated Creat Clear 82 01/25/17 06:15 Est GFR ( Amer) > 60 (60-) 01/25/17 06:15 Est GFR (Non-Af Amer) > 60 (60-) 01/25/17 06:15 Glucose 103 mg/dL (70-99) H 01/25/17 06:15 Calcium 9.5 mg/dL (8.5-10.5) 01/25/17 06:15 Total Bilirubin 0.7 mg/dL (0.2-1.2) 01/25/17 06:15 AST 24 U/L (0-41) 01/25/17 06:15 ALT 20 U/L (0-45) 01/25/17 06:15 Alkaline Phosphatase 189 U/L (46-116) H 01/25/17 06:15 Total Protein 6.4 g/dL (6.0-8.5) 01/25/17 06:15 Albumin 3.7 g/dL (3.0-5.5) 01/25/17 06:15 Assessment/Plan - Assessment/Plan (1) Gait disturbance Status: Acute Assessment: improving with PT and OT (2) Intertrochanteric fracture of femur Status: Acute Qualifiers: Fracture type: closed Fracture alignment: displaced Laterality: right Fracture healing: with routine healing Assessment: stable (3) Aspiration pneumonia Status: Acute Qualifiers: Aspiration pneumonia type: due to gastric secretions Laterality: bilateral Lung location: unspecified part of lung Qualified Code(s): J69.0 - Pneumonitis due to inhalation of food and vomit Assessment: no further aspiration problems. (4) Dementia Status: Chronic Qualifiers: Dementia type: Alzheimer's disease Assessment: stable
[2017-02-12 17:30] VITALS: BP 174/77
--- NOTE | 2017-02-25 14:35 | Discharge Summary ---
Discharge Summary - Discharge Sumary Home Medications: Ambulatory Orders Medication Instructions Recorded Aspirin [Ralph] 81 mg PO DAILY 01/17/17 Atorvastatin Calcium 40 mg PO HS 01/17/17 Donepezil HCl 10 mg PO HS 01/17/17 Furosemide [Lasix] 20 mg PO DAILY 01/17/17 Losartan Potassium [Cozaar] 75 mg PO DAILY 01/17/17 Metoprolol Tartrate [Lopressor] 25 mg PO DAILY 01/17/17 Multivitamin [Tab-A-Katherin] 1 each PO DAILY 01/17/17 Pantoprazole Sodium [Protonix] 20 mg PO 717 01/17/17 Potassium Chloride [Klor-Con M20] 20 meq PO DAILY 01/17/17 Magnesium Hydroxide [Milk of 2,400 mg PO DAILY PRN #0 unit dose 02/12/17 Magnesia] cup Allergies/Adverse Reactions: Allergies Allergy/AdvReac Type Severity Reaction Status Date / Time codeine AdvReac Nausea/Vomi Verified 01/17/17 13:45 ting
--- NOTE | 2017-02-25 14:39 | Discharge Summary ---
Discharge Summary - Discharge Sumary History of Present Illness: Patient is an 81 yo white female who fell and sustained a right intertrochanteric fracture with ORIF of the right hip. Postoperative course has been complicated by aspiration. She subsequently had a G tube placed. Patient has had a follow-up swallow study done which showed some improvement with her swallowing. Patient does have some dementia issues. Has been getting confused some but has not had any behavioral problems. Patient has bee admitted to this institution for further rehab services. The goal is for her to return home to live with her and daughter. Condition at Discharge: Stable Home Medications: Ambulatory Orders Medication Instructions Recorded Aspirin [Ralph] 81 mg PO DAILY 01/17/17 Atorvastatin Calcium 40 mg PO HS 01/17/17 Donepezil HCl 10 mg PO HS 01/17/17 Furosemide [Lasix] 20 mg PO DAILY 01/17/17 Losartan Potassium [Cozaar] 75 mg PO DAILY 01/17/17 Metoprolol Tartrate [Lopressor] 25 mg PO DAILY 01/17/17 Multivitamin [Tab-A-Katherin] 1 each PO DAILY 01/17/17 Pantoprazole Sodium [Protonix] 20 mg PO 717 01/17/17 Potassium Chloride [Klor-Con M20] 20 meq PO DAILY 01/17/17 Magnesium Hydroxide [Milk of 2,400 mg PO DAILY PRN #0 unit dose 02/12/17 Magnesia] cup Consultations this Visit: None Procedures this Visit: None Allergies/Adverse Reactions: Allergies Allergy/AdvReac Type Severity Reaction Status Date / Time codeine AdvReac Nausea/Vomi Verified 01/17/17 13:45 ting Discharge Summary: Patient was started on physical and occupational therapy. Patient did participate with therapies well and make improvement during her skilled stay. At the time of discharge patient was ambulating and transferring better. Patient did complain of some pain in the right hip. This was treated symptomatically. At the time of dismissal patient was doing well with very little pain in her hip area. Patient's dementia remained stable. Patient did have several episodes previously became agitated. During her acute hospitalization. Patient did have some aspiration problems. Patient did have a repeat swallow study done which did not show any further aspiration issues during her acute hospital stay. Patient however did have a G-tube that was placed and was present at the time of admission. After several weeks of not having any evidence of any aspiration. G-tube was removed. Patient was subsequently discharged home in stable condition. - Final Diagnosis (1) Gait disturbance Problems: improved with therapy. Will continue with home health PT and OT. (2) Intertrochanteric fracture of femur Problems: routine healing (3) Aspiration pneumonia Problems: No further evidence of aspiration and tube was removed,
== END 2017-02-12 16:40 | disposition home or self-care (01) | DRG 91 ==
LOC: SOUTH 13:10
PROVIDERS: ADMIT Family Medicine; ATTEND Family Medicine
DX: R26.89 Other abnormalities of gait and mobility (principal); J69.0 Pneumonitis due to inhalation of food and vomit; F03.90 Unspecified dementia, unspecified severity, without behavioral disturbance, psychotic disturbance, mood disturbance, and anxiety
CPT/HCPCS: 36415; 71020; 74230; 80053; 85025; J1650; A9270; Q0163

== ENCOUNTER 2017-02-07 10:12 | Outpatient (CLI) | payer OTHER ==
[2017-02-06 20:05] VITALS: BP 149/71
--- NOTE | 2017-02-07 20:26 | Diagnostic Imaging Report ---
MARISA GARCES~ [facility] [address] [facility] [address] [address] ~ ~ ~ ~ Report Submission Date: Feb 07, 2017 4:05:50 PM CDT Patient ~ Study Name: SUSU MUNIZ ~ Date: Feb 07, 2017 3:13:31 PM CDT ~ Modality Type: CR Gender: F ~ Description: PELVIS : 31 ~ Institution: [facility] Physician: MARISA GARCES ~ ~ ~ ~ Right hip, 2 views. History: FOLLOW UP OF CLOSED INTERTROCHANTERIC FRACTURE OF RIGHT FEMUR Findings: No comparisons available. There has been open reduction and ~ internal fixation of the right intertrochanteric fracture with appropriate position of the hardware . The fracture line is still visualized. There is atherosclerosis present. Impression: 1. Status open reduction and internal fixation of right intertrochanteric fracture. ~ Electronically signed on Feb 07, 2017 4:05:50 PM CDT by: Jono MARROQUIN
== END 2017-02-07 10:13 ==
LOC: RAD 10:12
PROVIDERS: ATTEND Family Medicine
DX: S72.141D Displaced intertrochanteric fracture of right femur, subsequent encounter for closed fracture with routine healing (principal)
CPT/HCPCS: 73502